=== PATIENT | female | born 1990 | race African-American/Black ===

== ENCOUNTER 2017-06-08 20:38 | Emergency (ER) | payer MEDICAID ==
[~2017-06-08] VITALS: Ht 160 cm; Wt 53.0 kg
[~2017-06-08 20:38] MED LIST: BIRTH CONTROL
[2017-06-08] MEDS ORDERED: ACETAMINOPHEN 325MG TABLET PO STA (21:07)
[2017-06-08] MEDS ORDERED: SODIUM CHLORIDE 0.9% 1,000 ML IV ONE (21:07)
[2017-06-08 21:35] LABS: BASOPHILS % 0.7 % (0.0-2.0); HEMATOCRIT. 38.7 % (36.0-48.0); HEMOGLOBIN. 13.1 g/dL (12.0-16.0); LYMPHOCYTES % 14.1 % (20.0-50.0); MEAN CORPUSCULAR HEMOGLOBIN 30.6 pg (28.0-32.0); MEAN CORPUSCULAR VOLUME 90.3 fL (81.0-99.0); MEAN PLATELET VOLUME 8.2 fl (7.4-10.4); MONOCYTES % 7.1 % (2.0-8.0); NEUTROPHILS % 77.1 % (40.0-76.0); PLATELET 207 x1000/uL (130-400); RED BLOOD CELL COUNT 4.28 mill/uL (4.2-5.4); RED CELL DISTRIBUTION WIDTH 13.3 % (11.6-14.6)
[2017-06-08 21:43] LABS: CARBON DIOXIDE 26 mEq/L (21-32); CHLORIDE 107 mEq/L (98-107)
[2017-06-08 21:50] LABS: B-HCG QUANTITATIVE < 1 mIU/mL (<3)
[2017-06-08 22:47] LABS: CLARITY URINE TURBID (CLEAR); COLOR URINE YELLOW (YELLOW); GLUCOSE URINE NEGATIVE (NEGATIVE); KETONES URINE NEGATIVE (NEGATIVE); LEUKOCYTE ESTERASE URINE NEGATIVE (NEGATIVE); NITRITE URINE NEGATIVE (NEGATIVE); OCCULT BLOOD URINE NEGATIVE (NEGATIVE); PH URINE 8.5 (4.5-8.0); PROTEIN URINE NEGATIVE (NEGATIVE); SPECIFIC GRAVITY URINE 1.021 (1.005-1.030)
[2017-06-09] MEDS ORDERED: FLUCONAZOLE 100MG TABLET PO ONE (00:15)
[2017-06-09] MEDS ORDERED: IBUPROFEN 600MG TABLET PO ONE (00:15)
[2017-06-09] MEDS ORDERED: FLUCONAZOLE 150MG TABLET PO NR (00:30)
[2017-06-09 00:33] VITALS: BP 120/78
== END 2017-06-09 00:37 | disposition home or self-care (01) ==
LOC: ER 20:38
DX: N93.8 Other specified abnormal uterine and vaginal bleeding (principal); B37.89 Other sites of candidiasis; J45.909 Unspecified asthma, uncomplicated; F17.200 Nicotine dependence, unspecified, uncomplicated
CPT/HCPCS: 36415; 76801; 76817; 80053; 81001; 81025; 84702; 85025; 86850; 86900; 86901; 96360; 96361; 99285; J7030; Z7610

== ENCOUNTER 2019-02-22 01:51 | Emergency (ER) | payer MEDICAID ==
[~2019-02-22] VITALS: Ht 160 cm; Wt 54.0 kg
[2019-02-22 03:20] LABS: CLARITY URINE CLEAR (CLEAR); COLOR URINE YELLOW (YELLOW); KETONES URINE NEGATIVE (NEGATIVE); LEUKOCYTE ESTERASE URINE NEGATIVE (NEGATIVE); NITRITE URINE NEGATIVE (NEGATIVE); OCCULT BLOOD URINE TRACE (NEGATIVE); PH URINE 6.5 (4.5-8.0); PROTEIN URINE NEGATIVE (NEGATIVE)
[2019-02-22 04:11] LABS: BASOPHILS % 0.5 % (0.0-2.0); EOSINOPHILS % 0.9 % (0.0-5.0); HEMATOCRIT. 36.2 % (36.0-48.0); HEMOGLOBIN. 12.3 g/dL (12.0-16.0); LYMPHOCYTES % 19.5 % (20.0-50.0); MEAN CORPUSCULAR HEMOGLOBIN 31.5 pg (28.0-32.0); MEAN CORPUSCULAR VOLUME 92.8 fL (81.0-99.0); MEAN PLATELET VOLUME 7.8 fl (7.4-10.4); MONOCYTES % 6.6 % (2.0-8.0); NEUTROPHILS % 72.5 % (40.0-76.0); PLATELET 174 x1000/uL (130-400); RED CELL DISTRIBUTION WIDTH 12.8 % (11.6-14.6)
[2019-02-22 04:13] VITALS: BP 97/72
[2019-02-22 04:19] LABS: CHLORIDE 109 mEq/L (98-107)
[2019-02-22 04:43] LABS: B-HCG QUANTITATIVE 8310 mIU/mL (<3)
== END 2019-02-22 06:03 | disposition home or self-care (01) ==
LOC: ER 01:51
DX: O20.9 Hemorrhage in early pregnancy, unspecified (principal); O26.891 Other specified pregnancy related conditions, first trimester; J45.909 Unspecified asthma, uncomplicated; O99.331 Smoking (tobacco) complicating pregnancy, first trimester; O99.321 Drug use complicating pregnancy, first trimester; Z3A.01 Less than 8 weeks gestation of pregnancy
CPT/HCPCS: 36415; 76801; 76817; 80053; 81003; 81025; 84702; 85025; 86850; 86900; 86901; 99284; Z7610

== ENCOUNTER 2019-03-11 17:45 | Emergency (ER) | payer MEDICAID ==
[~2019-03-11] VITALS: Ht 160 cm; Wt 54.0 kg
[2019-03-11] MEDS ORDERED: IPRATROPIUM/ALBUTEROL 0.5-3(2.5)MG/3ML NEB HHN ONE (19:00)
[2019-03-11 20:18] VITALS: BP 144/88
== END 2019-03-11 20:23 | disposition home or self-care (01) ==
LOC: ER 18:11
DX: O20.0 Threatened abortion (principal); O99.511 Diseases of the respiratory system complicating pregnancy, first trimester; J45.909 Unspecified asthma, uncomplicated; Z3A.08 8 weeks gestation of pregnancy
CPT/HCPCS: 81025; 94640; 99283; J7620

== ENCOUNTER 2020-04-19 18:31 | Emergency (ER) | payer MEDICAID ==
[~2020-04-19] VITALS: Ht 167.6 cm; Wt 69.0 kg
[2020-04-19] MEDS ORDERED: SODIUM CHLORIDE 0.9% 1,000 ML IV ONE (18:42)
[2020-04-19] MEDS ORDERED: ACETAMINOPHEN 325MG TABLET PO PRN (18:45)
[2020-04-19 19:17] LABS: BASOPHILS % 0.5 % (0.0-2.0); EOSINOPHILS % 1.2 % (0.0-5.0); HEMATOCRIT. 45.7 % (36.0-48.0); HEMOGLOBIN. 15.1 g/dL (12.0-16.0); LYMPHOCYTES % 23.4 % (20.0-50.0); MEAN CORPUSCULAR HEMOGLOBIN 30.3 pg (28.0-32.0); MEAN CORPUSCULAR VOLUME 91.9 fL (81.0-99.0); MEAN PLATELET VOLUME 8.7 fl (7.4-10.4); MONOCYTES % 6.5 % (2.0-8.0); NEUTROPHILS % 68.4 % (40.0-76.0); PLATELET 215 x1000/uL (130-400); RED BLOOD CELL COUNT 4.97 mill/uL (4.2-5.4); RED CELL DISTRIBUTION WIDTH 14.2 % (11.6-14.6)
[2020-04-19 19:19] LABS: CLARITY URINE CLOUDY (CLEAR); COLOR URINE YELLOW (YELLOW); KETONES URINE NEGATIVE (NEGATIVE); LEUKOCYTE ESTERASE URINE TRACE (NEGATIVE); NITRITE URINE NEGATIVE (NEGATIVE); OCCULT BLOOD URINE 3+ (NEGATIVE); PH URINE 5.5 (4.5-8.0); PROTEIN URINE TRACE (NEGATIVE); SPECIFIC GRAVITY URINE 1.022 (1.005-1.030)
[2020-04-19 19:22] LABS: CHLORIDE 105 mEq/L (98-107)
[2020-04-19 19:30] LABS: *AMPHETAMINES SCREEN URINE NEGATIVE (NEGATIVE); *BARBITURATES SCREEN URINE NEGATIVE (NEGATIVE); METHADONE URINE SCREEN NEGATIVE (NEGATIVE); OPIATES URINE SCREEN NEGATIVE (NEGATIVE); PHENCYCLIDINE URINE SCREEN NEGATIVE (NEGATIVE)
[2020-04-19 19:31] LABS: *BENZODIAZEPINES SCREEN URINE NEGATIVE (NEGATIVE)
[2020-04-19 19:33] LABS: B-HCG QUANTITATIVE < 1 mIU/mL (<3)
[2020-04-19 19:35] LABS: *COCAINE SCREEN URINE PRESUMTIVE POSITIVE (NEGATIVE); CANNABINOID URINE SCREEN PRESUMTIVE POSITIVE (NEGATIVE)
[2020-04-19] MEDS ORDERED: KETOROLAC 15MG/ML VIAL IV ONE (20:00)
[2020-04-19] MEDS ORDERED: CEPHALEXIN 250MG CAPSULE PO ONE (22:30)
[2020-04-19 23:04] VITALS: BP 121/75
== END 2020-04-19 22:40 | disposition left against medical advice (07) ==
LOC: ER 18:31
DX: N39.0 Urinary tract infection, site not specified (principal); J45.909 Unspecified asthma, uncomplicated; Z87.442 Personal history of urinary calculi
CPT/HCPCS: 36415; 74176; 76830; 76856; 80053; 80305; 81003; 81025; 84702; 85025; 86850; 86870; 86900; 86901; 87086; 93005; 96361; 96374; 99285; J1885; J7030